=== PATIENT | female | born 1955 | race Asian ===

== ENCOUNTER 2016-08-13 09:00 | Emergency (ER) | payer OTHER ==
[~2016-08-13] VITALS: Ht 152.4 cm; Wt 56.8 kg
[2016-08-13] MEDS ORDERED: METO50 PO (09:08)
[2016-08-13] MEDS ORDERED: ATOR20TA65 PO (09:08)
[2016-08-13] MEDS ORDERED: OMEP20CA10 PO (09:08)
[2016-08-13] MEDS ORDERED: HydrOXYzine PAMOATE 50 MG CAPSULE PO ONE (09:30)
[2016-08-13 09:55] LABS: BASOPHILS % (AUTO) 0.6 % (0.0-2.0); EOSINOPHILS % (AUTO) 3.6 % (1.0-6.0); HEMATOCRIT 42.2 % (36-46); HEMOGLOBIN 14.2 g/dL (12.0-16.0); LYMPHOCYTES # (AUTO) 2.3 K/uL (1.0-4.8); LYMPHOCYTES % (AUTO) 34.1 % (22.0-44.0); MEAN CORPUSCULAR HEMOGLOBIN 29.2 pg (26.0-34.0); MEAN CORPUSCULAR HGB CONC 33.6 G/dL (31.0-37.0); MEAN CORPUSCULAR VOLUME 87 fL (80-100); MONOCYTES # (AUTO) 0.4 K/uL (0.1-1.0); MONOCYTES % (AUTO) 5.9 % (2.0-9.0); NEUTROPHILS # (AUTO) 3.8 K/uL (1.8-7.7); NEUTROPHILS % (AUTO) 55.8 % (40.0-70.0); PLATELET COUNT (AUTO) 267 K/uL (150-450); RED BLOOD CELL COUNT(AUTO) 4.86 MIL/uL (4.00-5.20); RED CELL DISTRIBUTION WIDTH 13.4 % (11.5-14.5); WHITE BLOOD COUNT (AUTO) 6.8 K/uL (4.5-11.0)
[2016-08-13 10:02] LABS: CALCIUM, TOTAL 9.6 mg/dL (8.8-10.5); CREATININE 1.15 mg/dL (0.60-1.30); POTASSIUM 4.3 mmol/L (3.5-5.1)
[2016-08-13 10:40] VITALS: BP 185/91
== END 2016-08-13 10:52 | disposition home or self-care (01) ==
LOC: EMS 09:02
DX: R20.0 Anesthesia of skin (principal); F41.9 Anxiety disorder, unspecified; I10 Essential (primary) hypertension; E78.00 Pure hypercholesterolemia, unspecified
CPT/HCPCS: 70450; 93005; 99285